=== PATIENT | male | born 1955 | race Caucasian/White ===

== ENCOUNTER 2021-12-15 15:34 | Outpatient (CLI) | payer MEDICARE ==
[2021-12-15 17:05] LABS: Hemoglobin 15.4 g/dL (13.5-17.5); Mean Corpuscular HGB CONC 33.5 g/dL (32.0-36.0); Mean Corpuscular Hemoglobin 30.8 pg (27.0-33.0); Mean Platelet Volume 9.2 fl (7.4-10.4); Platelet Count 347 10x3/uL (150-450); RBC Distribution Width 14.9 % (11.5-14.5); White Blood Cell (WBC) Count 10.1 10x3/uL (3.5-10.5)
[2021-12-15 17:25] LABS: INR-International Normal Ratio 1.1; Prothrombin Time 12.2 sec (9.5-12.1)
[2021-12-15 17:36] LABS: Anion Gap 17 mmol/L (10-20); BUN (Urea Nitrogen) 14 mg/dL (8.4-25.7); Calc. Creatinine Clearance 0 mL/min (70-130); Calcium 9.5 mg/dL (7.8-10.44); Carbon Dioxide 26 mmol/L (23-31); Chloride 101 mmol/L (98-107); Estimated GFR 67; Glucose 79 mg/dL (80-115); Potassium 3.7 mmol/L (3.5-5.1); Sodium 140 mmol/L (136-145)
== END 2021-12-15 15:35 | disposition home or self-care (01) ==
LOC: LABBT 15:34
PROVIDERS: ATTEND Internal Medicine Cardiovascular Disease
DX: Z01.812 Encounter for preprocedural laboratory examination (principal); I48.0 Paroxysmal atrial fibrillation; I48.4 Atypical atrial flutter; Z20.822 Contact with and (suspected) exposure to COVID-19
CPT/HCPCS: 80048; 85027; 85610; 87811

== ENCOUNTER → 2021-12-18 | Day surgery (SDC) | payer MEDICARE, BC ==
[2021-12-17 12:57] VITALS: BMI 33.0
[~2021-12-18] MED LIST: Heparin 10,000 UNITS/ 10 ML VIAL ONE; Heparin 25,000 units/D5W 500 ML ONE; Nitroglycerin 50 MG/250 ML BOT 250 ML ONE; Ondansetron PF 4 MG/2 ML Vial ONE; PROPOFOL 20 ML ONE; PROPOFOL 200 MG/20 ML VIAL ONE; Phenylephrine 10 MG/ML VIAL ONE; Protamine Sulfate 50 MG/5 ML VIAL ONE; Succinylcholine 200 MG/10 ml SYRINGE FS ONE; fentaNYL Citrate/PF 100 MCG/2 ML SYRINGE ONE
== END ==
LOC: SDC 05:58
PROVIDERS: ATTEND Internal Medicine Cardiovascular Disease
PROC: B246ZZ4 Ultrasonography of Right and Left Heart, Transesophageal (ICD-10-PCS; principal; 2021-12-18)
PROC: 02583ZZ Destruction of Conduction Mechanism, Percutaneous Approach (ICD-10-PCS; 2021-12-18)
PROC: 02K83ZZ Map Conduction Mechanism, Percutaneous Approach (ICD-10-PCS; 2021-12-18)
DX: I48.4 Atypical atrial flutter (principal); I48.0 Paroxysmal atrial fibrillation; I47.1 Supraventricular tachycardia; I08.1 Rheumatic disorders of both mitral and tricuspid valves; I70.0 Atherosclerosis of aorta; I10 Essential (primary) hypertension; E78.5 Hyperlipidemia, unspecified; K21.9 Gastro-esophageal reflux disease without esophagitis; Z86.73 Personal history of transient ischemic attack (TIA), and cerebral infarction without residual deficits; Z87.891 Personal history of nicotine dependence; Z79.01 Long term (current) use of anticoagulants; Z79.899 Other long term (current) drug therapy
CPT/HCPCS: 85347 ×2; 93005; 93312; 93462; 93621; 93653; 93655; 93662; C1730; C1732; C1759; C1760; C1769 ×3; C1894 ×4; C2630; J1644; J2370; J2405; J2704; J2720

== ENCOUNTER 2022-11-02 06:26 | Day surgery (SDC) | payer MEDICARE, BC ==
[2022-10-29 11:40] VITALS: BMI 34.7
[2022-11-02] MEDS ORDERED: Magnesium 5 GM/10 ML VIAL ONE (07:07)
[2022-11-02] MEDS ORDERED: Dexmedetomidine 200 MCG/2 ML VIAL ONE (07:07)
[2022-11-02] MEDS ORDERED: SUGAMMADEX SODIUM 200 MG/2 ML VIAL ONE (07:27)
[2022-11-02] MEDS ORDERED: Lidocaine 2% 6 ML (Jelly) SYR ONE (07:27)
[2022-11-02 07:34] LABS: #Basophils 0.1 thou/uL (0.0-0.2); #Eosinphils 0.3 thou/uL (0.0-0.7); #Monocytes 1.1 thou/uL (0.11-0.59); %Basophils 0.6 % (0.0-1.0); %Eosinophils 4.3 % (0.0-10.0); %Lymphocytes 16.6 % (21.0-51.0); %Monocytes 14.3 % (0.0-10.0); %Neutrophils 63.2 % (42.0-75.0); Hemoglobin 15.5 g/dL (14.0-18.0); Mean Corpuscular HGB CONC 33.6 g/dL (32.0-36.0); Mean Corpuscular Hemoglobin 30.4 pg (27.0-31.0); Mean Corpuscular Volume 90.4 fl (78.0-98.0); Mean Platelet Volume 9.4 fL (7.4-10.4); Platelet Count 291 10x3/uL (130-400); RBC Distribution Width 13.7 % (11.5-14.5)
[2022-11-02] MEDS ORDERED: Sodium Chloride 0.9% 100 ML ONE (07:38)
[2022-11-02] MEDS ORDERED: CEFAZOLIN 2 GM VIAL ONE (07:38)
[2022-11-02 07:59] LABS: Anion Gap 13 mmol/L (10-20); BUN (Urea Nitrogen) 22 mg/dL (8.4-25.7); Calc. Creatinine Clearance 100 mL/min (70-130); Calcium 9.3 mg/dL (7.8-10.44); Carbon Dioxide 25 mmol/L (23-31); Chloride 104 mmol/L (98-107); Estimated GFR 75; Glucose 107 mg/dL (80-115); Potassium 3.7 mmol/L (3.5-5.1); Sodium 138 mmol/L (136-145)
[2022-11-02] MEDS ORDERED: Dexamethasone 20 MG/5 ML VIAL ONE (08:22)
[2022-11-02] MEDS ORDERED: PHENYLEPHRINE-NS 100 MCG/ML 10 ML SYRINGE ONE (08:22)
[2022-11-02] MEDS ORDERED: ePHEDrine Sulfate 50 MG/10 ML VIAL ONE (08:22)
[2022-11-02] MEDS ORDERED: Rocuronium Bromide 10 MG/ML (10ML VIAL) ONE (08:22)
[2022-11-02] MEDS ORDERED: PROPOFOL 200 MG/20 ML VIAL ONE (08:22)
[2022-11-02] MEDS ORDERED: Ondansetron PF 4 MG/2 ML Vial ONE (08:22)
[2022-11-02] MEDS ORDERED: Lidocaine 1% PF 5 ML VIAL ONE (08:22)
[2022-11-02] MEDS ORDERED: fentaNYL 50 mcg/mL 1 mL Vial ONE ×3 (08:33→10:19)
[2022-11-02] MEDS ORDERED: HYDROcodone/Acetaminophen 5/325 mg Tablet ONE (11:16)
== END 2022-11-02 12:10 | disposition home or self-care (01) ==
LOC: SDC 06:26
PROVIDERS: ATTEND Neurological Surgery
PROC: 0RG20A0 Fusion of 2 or more Cervical Vertebral Joints with Interbody Fusion Device, Anterior Approach, Anterior Column, Open Approach (ICD-10-PCS; principal; 2022-11-02)
PROC: 0RG2070 Fusion of 2 or more Cervical Vertebral Joints with Autologous Tissue Substitute, Anterior Approach, Anterior Column, Open Approach (ICD-10-PCS; 2022-11-02)
DX: M54.12 Radiculopathy, cervical region (principal); M48.062 Spinal stenosis, lumbar region with neurogenic claudication; M48.02 Spinal stenosis, cervical region; K21.9 Gastro-esophageal reflux disease without esophagitis; I48.91 Unspecified atrial fibrillation; I10 Essential (primary) hypertension; E78.5 Hyperlipidemia, unspecified; Z79.899 Other long term (current) drug therapy
CPT/HCPCS: 20930; 20936; 22551; 22552; 22845; 22853 ×2; 80048; 85025; 93005; C1713 ×6; J3010; 93010; J1100; J2405; J2704; J3475; J3490

== ENCOUNTER 2023-07-05 06:04 | Observation (INO) | payer MEDICARE, BC ==
[2023-07-05] MEDS ORDERED: Vancomycin 1 GM VIAL ONE (06:34)
[2023-07-05 06:54] LABS: #Eosinphils 0.4 thou/uL (0.0-0.7); #Monocytes 1.5 thou/uL (0.11-0.59); #Neutrophils 5.6 thou/uL (1.40-6.50); %Basophils 0.4 % (0.0-1.0); %Lymphocytes 19.4 % (21.0-51.0); %Monocytes 15.6 % (0.0-10.0); %Neutrophils 58.8 % (42.0-75.0); Hematocrit 47.7 % (42.0-52.0); Mean Corpuscular HGB CONC 33.5 g/dL (32.0-36.0); Mean Corpuscular Hemoglobin 30.2 pg (27.0-31.0); Mean Platelet Volume 9.3 fL (7.4-10.4); Platelet Count 296 10x3/uL (130-400); RBC Distribution Width 15.3 % (11.5-14.5); White Blood Cell (WBC) Count 9.4 10x3/uL (4.8-10.8)
[2023-07-05] MEDS ORDERED: Milk Of Magnesia 30 ML UDCUP PO PRN (06:59)
[2023-07-05] MEDS ORDERED: Ondansetron PF 4 MG/2 ML Vial IVP PRN (06:59)
[2023-07-05] MEDS ORDERED: diphenhydrAMINE 25 MG CAP PO PRN (06:59)
[2023-07-05] MEDS ORDERED: CEFAZOLIN 2 GM VIAL ONE (06:59)
[2023-07-05] MEDS ORDERED: Sodium Chloride 0.9% 100 ML ONE (06:59)
[2023-07-05] MEDS ORDERED: Mag-Al 1200 mg/1200 mg/30 ML UDCUP PO PRN (06:59)
[2023-07-05] MEDS ORDERED: Promethazine 25 MG TAB PO PRN (06:59)
[2023-07-05] MEDS ORDERED: Acetaminophen 325 MG TAB PO PRN (06:59)
[2023-07-05] MEDS ORDERED: Fentanyl 250 MCG/5 ML VIAL ONE (07:07)
[2023-07-05] MEDS ORDERED: Lidocaine 1% PF 5 ML VIAL ONE (07:07)
[2023-07-05] MEDS ORDERED: PROPOFOL 20 ML ONE (07:07)
[2023-07-05] MEDS ORDERED: Rocuronium Bromide 10 MG/ML (10ML VIAL) ONE (07:07)
[2023-07-05 07:14] LABS: Anion Gap 15 mmol/L (10-20); BUN (Urea Nitrogen) 18 mg/dL (8.4-25.7); Calc. Creatinine Clearance 85 mL/min (70-130); Calcium 9.7 mg/dL (7.8-10.44); Carbon Dioxide 22 mmol/L (23-31); Chloride 102 mmol/L (98-107); Estimated GFR 61; Glucose 111 mg/dL (80-115); Potassium 4.3 mmol/L (3.5-5.1); Sodium 135 mmol/L (136-145)
[2023-07-05] MEDS ORDERED: Phenylephrine 10 MG/ML VIAL ONE (07:58)
[2023-07-05] MEDS ORDERED: Sodium Chloride 0.9% 250 ML 250 ML ONE ×2 (07:58→08:08)
[2023-07-05] MEDS ORDERED: ePHEDrine Sulfate 50 MG/10 ML VIAL ONE (08:09)
[2023-07-05] MEDS ORDERED: Calcium Chloride 1 GM/10 ML Abboject SYRINGE ONE ×2 (08:13)
[2023-07-05] MEDS ORDERED: SUGAMMADEX SODIUM 200 MG/2 ML VIAL ONE (08:54)
[2023-07-05] MEDS ORDERED: Lidocaine 2% PF 5 ML VIAL ONE (08:58)
[2023-07-05] MEDS ORDERED: Dexamethasone 20 MG/5 ML VIAL ONE (09:03)
[2023-07-05] MEDS ORDERED: Ondansetron PF 4 MG/2 ML Vial ONE (09:03)
[2023-07-05] MEDS ORDERED: Morphine Sulfate 2 MG/ML SYRINGE SLOW IVP PRN (09:05)
[2023-07-05] MEDS ORDERED: Ondansetron HCl/PF 4 MG/2 ML Vial IVP PRN (09:05)
[2023-07-05] MEDS ORDERED: Promethazine HCl 25 MG/ML VIAL IM PRN (09:05)
[2023-07-05] MEDS ORDERED: PACU-Morphine 4MG/ML VIAL SLOW IVP PRN (09:05)
[2023-07-05] MEDS ORDERED: fentaNYL PF 100 MCG/2 ML SYRINGE ONE (09:46)
[2023-07-05] MEDS ORDERED: fentaNYL 50 mcg/mL 1 mL Vial ONE (10:23)
[2023-07-05] MEDS: Cyclobenzaprine 10 MG TAB PO PRN (11:28)
[2023-07-05] MEDS: Acetaminophen/Codeine 30-300mg Tablet PO PRN ×2 (11:29→20:13)
[2023-07-05] MEDS: Flecainide Acetate 100 MG TAB PO SCH (11:31)
[2023-07-05] MEDS: Chlorthalidone 25 MG TAB PO SCH (11:31)
[2023-07-05] MEDS: Lisinopril 20 MG TAB PO SCH (11:31)
[2023-07-05] MEDS: Atenolol 50 MG TAB PO SCH (11:32)
[2023-07-05] MEDS: Sodium Chloride 0.9% 1,000 ML IV SCH (11:46)
[2023-07-05] MEDS: Morphine 2 MG/ML VIAL SLOW IVP PRN (12:16)
[2023-07-05] MEDS: traMADol HCl 50 MG TAB PO PRN (13:42)
[2023-07-05] MEDS: CEFAZOLIN 2 GM in Sodium Chloride 0.9% 100 ML IVPB SCH (16:43)
[2023-07-05 19:36] VITALS: BMI 35.5
[2023-07-05] MEDS: Rosuvastatin 5 MG TAB PO SCH (20:13)
[2023-07-06] MEDS ORDERED: Rivaroxaban 10 MG TAB PO SCH (17:00)
[2023-07-07] MEDS: Lisinopril 10 MG TAB PO SCH (08:54)
[2023-07-07 08:56] VITALS: BP 140/86
[2023-07-07 09:11] VITALS: TEMP 97.6
[2023-07-08] MEDS ORDERED: FLU VACC QS2023(65UP)/MF59C/PF 60 MCG/0.5 ML SYRINGE IM ONE (09:00)
== END 2023-07-07 10:40 | disposition home or self-care (01) ==
LOC: SDC 06:04 → SURG B 10:50
PROVIDERS: ADMIT Neurological Surgery; ATTEND Neurological Surgery
PROC: 0SG107J Fusion of 2 or more Lumbar Vertebral Joints with Autologous Tissue Substitute, Posterior Approach, Anterior Column, Open Approach (ICD-10-PCS; principal; 2023-07-05)
DX: M48.062 Spinal stenosis, lumbar region with neurogenic claudication (principal); I10 Essential (primary) hypertension; E78.5 Hyperlipidemia, unspecified; I48.0 Paroxysmal atrial fibrillation; K21.9 Gastro-esophageal reflux disease without esophagitis; Z86.73 Personal history of transient ischemic attack (TIA), and cerebral infarction without residual deficits
CPT/HCPCS: 20930; 20936; 22612; 22614; 22842; 80048; 85025; 93005; 97116 ×2; 97530; C1713 ×3; C1889 ×2; J3010; 93010; J1100; J2001; J2272; J2371; J2405; J2704; J3370; J3490; J7050